=== PATIENT | female | born 1945 | race Caucasian/White ===

== ENCOUNTER → 2020-11-23 12:48 | Outpatient (BNVA) | payer MEDICARE, MEDICAID, SELFPAY | PROVIDERS: Family Provider Family Medicine; PCP Nurse Practitioner Family; Visit Provider Specialist | DX: M54.81 Occipital neuralgia (principal); G24.4 Idiopathic orofacial dystonia; G43.711 Chronic migraine without aura, intractable, with status migrainosus; R20.0 Anesthesia of skin; R20.2 Paresthesia of skin | CPT/HCPCS: 64405; 99204; J1030; J3490 ==

== ENCOUNTER → 2021-01-11 15:29 | Outpatient (BNVA) | payer MEDICARE, MEDICAID, SELFPAY | PROVIDERS: Family Provider Family Medicine; PCP Nurse Practitioner Family; Visit Provider Specialist | DX: G24.4 Idiopathic orofacial dystonia (principal); M54.81 Occipital neuralgia; G43.711 Chronic migraine without aura, intractable, with status migrainosus | CPT/HCPCS: 64612; J0585 ==

== ENCOUNTER → 2021-04-05 11:27 | Outpatient (BNVA) | payer MEDICARE, MEDICAID, SELFPAY | PROVIDERS: Family Provider Family Medicine; PCP Nurse Practitioner Family; Visit Provider Specialist | DX: G24.4 Idiopathic orofacial dystonia (principal); G24.5 Blepharospasm | CPT/HCPCS: 64612; J0585 ==

== ENCOUNTER → 2021-06-28 12:40 | Outpatient (BNVA) | payer MEDICARE, MEDICAID, SELFPAY | PROVIDERS: Family Provider Family Medicine; PCP Nurse Practitioner Family; Referring Provider Nurse Practitioner Family; Visit Provider Specialist | DX: G24.4 Idiopathic orofacial dystonia (principal); M54.81 Occipital neuralgia | CPT/HCPCS: 99214 ==